=== PATIENT | male | born 1945 | race Caucasian/White ===

== ENCOUNTER 2016-12-22 07:44 | Day surgery (SDC) | payer BC, MEDICARE ==
[2016-12-22] MEDS ORDERED: Sodium Chloride 0.9% 5 ML Syringe FLUSH PRN (08:00)
[2016-12-22] MEDS ORDERED: Sodium Chloride 0.9% 1,000 ML IV SCH (08:00)
[2016-12-22] MEDS ORDERED: EPINEPHrine 1:10,000 1 MG/10 ML Syringe ONE ×2 (08:05→09:38)
[2016-12-22] MEDS ORDERED: fentaNYL 100 MCG/2 ML SDV ONE (08:07)
[2016-12-22] MEDS ORDERED: Propofol 200 MG/20 ML SDV ONE (08:07)
[2016-12-22] MEDS ORDERED: Midazolam 1 MG/ML 2 ML SDV ONE (08:07)
[2016-12-22] MEDS ORDERED: Lidocaine 2% 5 ML SDV ONE (08:08)
[2016-12-22 08:53] LABS: CHLORIDE,CL 101 mmol/L (98-115); SODIUM,NA 140 mmol/L (136-145)
[2016-12-22] MEDS ORDERED: Midazolam 1 MG/ML 2 ML SDV IV ONE (09:20)
[2016-12-22] MEDS ORDERED: Lidocaine 2% 5 ML SDV IV ONE (09:20)
[2016-12-22] MEDS ORDERED: fentaNYL 100 MCG/2 ML SDV IV ONE (09:20)
[2016-12-22] MEDS ORDERED: Propofol 200 MG/20 ML SDV IV ONE (09:20)
--- NOTE | 2016-12-22 09:56 | PCM.OPNOTE ---
- General Post-Op/Procedure Note Date of Surgery/Procedure: 12/22/16 Operative Procedure(s): Upper and lower GI endoscopy with biopsies. Anesthesia Technique: Moderate sedation Primary Surgeon: Karolyn Kiran Complications: None Condition: Good Free Text/Narrative:: INFORMED CONSENT: Patient is here today for elective upper GI endoscopy. All aspects of this procedure have been discussed with the patient. All possible complications also, including possibility of perforation, infection, pain, bleeding, numbness of the throat, swallowing difficulty and unknown complications. In the event of perforation the patient may need surgical exploration to repair the defect. The patient understands fully well. Patient did not have any further questions for me at the end of my interview. The patient wishes for me to proceed. INSTRUMENT USED: Video gastroscope ANESTHESIA: [MAC] ASA CLASSIFICATION: [2] PROCEDURE PERFORMED: [upper gastrointestinal endoscopy and biopsies] PHARYNX: Normal. ESOPHAGUS: Normal. Proximal: Normal. Middle: Changes of reflux esophagitis and noted up to the middle third of the esophagus.. Lower: Moderate to severe evidence of GERD is observed. Question Tellez's esophagitis. Multiple biopsies were taken.. GE Junction: Changes suggestive of GERD are noted. Hiatal hernia 5 cm.. STOMACH: Normal. Cardia: Normal. Fundus: Normal. Lesser Curvature: Normal. Greater Curvature: Normal. Antrum: Normal. Pylorus: Normal. DUODENUM: Normal. First Part: Normal. Second Part: Normal. Third Part: Normal. RETROFLEXION: Normal. BIOPSY: None. TOLERANCE: Excellent. COMPLICATIONS: None. INFORMED CONSENT: Patient is here today for elective colonoscopy. All aspects of this procedure have been discussed with the patient. All possible complications also, including possibility of perforation, infection, pain, bleeding and unknown complications. In the event of perforation patient may need to have abdominal exploration, colon resection, colostomy and even was discussed. Anesthetic complications were handled by anesthesia department. The patient understands fully well. Patient did not have any further questions for me at the end of my interview. The patient wishes for me to proceed. PREOPERATIVE DIAGNOSIS/INDICATIONS: [low abdomen pain and alteration of bowel habits.] POSTOPERATIVE DIAGNOSIS: [multiple diverticulosis of the sigmoid colon otherwise negative colonoscopy.] INSTRUMENT USED: [employer] videocolonoscope. ASA CLASSIFICATION: [2] ANESTHESIA: Continuous EKG, oximetry and intermittent blood pressure and respiratory monitoring were performed throughout the procedure. IV Versed and Fentanyl were administered. PROCEDURE PERFORMED: Colonoscopy POSITIONS OF PATIENT: Left lateral. RECTUM: Normal. SIGMOID COLON: Multiple sigmoid colon diverticulosis.. DESCENDING COLON: Normal. SPLENIC FLEXURE: Normal. TRANSVERSE COLON: Normal. HEPATIC FLEXURE: Normal. ASCENDING COLON: Normal. CECUM: Normal. ILEOCECAL VALVE: Normal. BIOPSY: None. TOLERANCE: Excellent. COMPLICATIONS: None.
[2016-12-22 14:44] VITALS: BP 128/81
== END 2016-12-22 11:40 | disposition home or self-care (01) ==
LOC: KA.SDS 07:44
PROVIDERS: ATTEND Family Medicine
DX: K20.9 Esophagitis, unspecified (principal); K57.30 Diverticulosis of large intestine without perforation or abscess without bleeding; K44.9 Diaphragmatic hernia without obstruction or gangrene; K21.9 Gastro-esophageal reflux disease without esophagitis; E11.9 Type 2 diabetes mellitus without complications; I10 Essential (primary) hypertension; E03.9 Hypothyroidism, unspecified; I45.2 Bifascicular block; E78.00 Pure hypercholesterolemia, unspecified; Z90.49 Acquired absence of other specified parts of digestive tract; Z79.899 Other long term (current) drug therapy; Z79.82 Long term (current) use of aspirin; Z23 Encounter for immunization
CPT/HCPCS: 43235; 45378; 80048; 82962; 85025; 93005; J0171; J2250; J2704; J3010

== ENCOUNTER 2017-02-11 07:08 | Day surgery (SDC) | payer BC, MEDICARE ==
[~2017-02-11 07:08] MED LIST: EPINEPHrine 1:10,000 1 MG/10 ML Syringe ONE; Sodium Chloride 0.9% 1,000 ML IV SCH; Sodium Chloride 0.9% 5 ML Syringe FLUSH PRN
[2017-02-11] MEDS ORDERED: Midazolam 1 MG/ML 2 ML SDV ONE (07:11)
[2017-02-11] MEDS ORDERED: Propofol 200 MG/20 ML SDV ONE (07:11)
[2017-02-11] MEDS ORDERED: Lidocaine 2% 5 ML SDV ONE (07:15)
[2017-02-11] MEDS ORDERED: Midazolam 1 MG/ML 2 ML SDV IV ONE (08:13)
[2017-02-11] MEDS ORDERED: Propofol 200 MG/20 ML SDV IV ONE (08:13)
--- NOTE | 2017-02-11 08:40 | PCM.OPNOTE ---
- General Post-Op/Procedure Note Date of Surgery/Procedure: 02/11/17 Operative Procedure(s): Upper GI Endoscopy. Pre Op Diagnosis: Severe reflux diagnosed in December. Patient has been treated with PPIs. Followup endoscopy is being proposed today. Anesthesia Technique: MAC Primary Surgeon: Karolyn Kiran Complications: None Condition: Good Free Text/Narrative:: INFORMED CONSENT: Patient is here today for elective upper GI endoscopy. All aspects of this procedure have been discussed with the patient. All possible complications also, including possibility of perforation, infection, pain, bleeding, numbness of the throat, swallowing difficulty and unknown complications. In the event of perforation the patient may need surgical exploration to repair the defect. The patient understands fully well. Patient did not have any further questions for me at the end of my interview. The patient wishes for me to proceed. INSTRUMENT USED: Video gastroscope ANESTHESIA: [MAC] ASA CLASSIFICATION: [2] PROCEDURE PERFORMED: [upper gastrointestinal endoscopy] PHARYNX: Normal. ESOPHAGUS: Normal. Proximal: Normal. Middle: Normal. Lower: Normal. GE Junction: A small hiatal hernia without inflammation was noted. STOMACH: Normal. Cardia: Normal. Fundus: Normal. Lesser Curvature: Normal. Greater Curvature: Normal. Antrum: Normal. Pylorus: Normal. DUODENUM: Normal. First Part: Normal. Second Part: Normal. Third Part: Normal. RETROFLEXION: Normal. BIOPSY: None. TOLERANCE: Excellent. COMPLICATIONS: None. small hiatal hernia without inflammation. Previously noted inflammation has completely cleared.
[2017-02-11 09:20] VITALS: BP 120/68
== END 2017-02-11 09:55 | disposition home or self-care (01) ==
LOC: KA.SDS 07:08
PROVIDERS: ATTEND Family Medicine
DX: K44.9 Diaphragmatic hernia without obstruction or gangrene (principal); I10 Essential (primary) hypertension; E11.9 Type 2 diabetes mellitus without complications; E03.9 Hypothyroidism, unspecified; E78.00 Pure hypercholesterolemia, unspecified; Z98.890 Other specified postprocedural states; Z88.8 Allergy status to other drugs, medicaments and biological substances; Z79.899 Other long term (current) drug therapy
CPT/HCPCS: 43235; 82962; J2250; J2704; J7030

== ENCOUNTER 2019-01-22 19:58 | Emergency (ER) | payer BC, MEDICARE ==
[2019-01-22] MEDS ORDERED: Sodium Chloride 0.9% 1,000 ML ONE (20:22)
[2019-01-22] MEDS ORDERED: Sodium Chloride 0.9% 10 ML Syringe FLUSH PRN (20:36)
[2019-01-22] MEDS ORDERED: Sodium Chloride 0.9% 1,000 ML IV ONE (20:36)
--- NOTE | 2019-01-22 20:40 | EDM.PDOC ---
ED HPI GENERAL MEDICAL PROBLEM - General Chief Complaint: General Stated Complaint: Weakness Time Seen by Provider: 01/22/19 20:34 Source of Information: Reports: Patient History Limitations: Reports: No Limitations - History of Present Illness INITIAL COMMENTS - FREE TEXT/NARRATIVE: Patient is a 73-year-old gentleman who presents to the emergency department this evening with a complaint of fatigue and weakness. Patient states that this is along standing complaint, however seems to be getting worse lately. Patient also says he has chronic diarrhea and some stool incontinence. Patient had a radical prostatectomy 10 years ago. Patient also has a history of diverticulosis. Patient denies spending any long periods of time in the recent hot weather. Patient denies chest pain, shortness of breath, nausea, vomiting, abdominal pain, testicular pain, dysuria, change in medication, upper respiratory symptoms, or out of country travel. Onset: Gradual Duration: Getting Worse Location: Reports: Generalized Severity: Mild Improves with: Reports: None Worsens with: Reports: Other (Activity) Associated Symptoms: Reports: Other (Chronic diarrhea). Denies: Chest Pain, Fever/Chills, Nausea/Vomiting - Related Data Allergies Allergy/AdvReac Type Severity Reaction Status Date / Time aspirin Allergy Other Verified 01/22/19 20:03 Home Meds: Home Meds Levothyroxine [Synthroid] 50 mcg PO ACBREAKFAST 12/18/16 [History] Lisinopril/Hydrochlorothiazide [Lisinopril-Hctz 10-12.5 mg Tab] 1 each PO DAILY 12/18/16 [History] Omeprazole 20 mg PO DAILY 12/18/16 [History] atorvaSTATin [Lipitor] 40 mg PO BEDTIME 12/18/16 [History] sitaGLIPtin Phos/Metformin HCl [Janumet 50-1,000 MG] 1 each PO BID 12/18/16 [ History] Allopurinol [Zyloprim] 200 mg PO DAILY 02/10/17 [History] Past Medical History HEENT History: Reports: Cataract Cardiovascular History: Reports: High Cholesterol, Hypertension Respiratory History: Reports: None Gastrointestinal History: Reports: Diverticulosis, Hiatal Hernia Genitourinary History: Reports: Prostate Disorder Musculoskeletal History: Reports: Gout Neurological History: Reports: None Psychiatric History: Reports: None Endocrine/Metabolic History: Reports: Diabetes, Type II Hematologic History: Reports: Blood Transfusion(s) Immunologic History: Reports: None Oncologic (Cancer) History: Reports: Prostate, Squamous Cell Carcinoma Dermatologic History: Reports: None - Past Surgical History HEENT Surgical History: Reports: Cataract Surgery GI Surgical History: Reports: Appendectomy, Colonoscopy, EGD, Hernia, Abdominal Social & Family History - Family History Family Medical History: Noncontributory - Caffeine Use Caffeine Use: Reports: Coffee, Soda ED ROS GENERAL - Review of Systems Review Of Systems: ROS reveals no pertinent complaints other than HPI. Constitutional: Reports: No Symptoms HEENT: Reports: No Symptoms Respiratory: Reports: No Symptoms Cardiovascular: Reports: No Symptoms Endocrine: Reports: No Symptoms GI/Abdominal: Reports: Diarrhea, Stool Incontinence, Other (No abdominal pain or Sanders sign on palpation.). Denies: Abdominal Pain, Black Stool, Bloody Stool, Mucous in Stool : Reports: No Symptoms Musculoskeletal: Reports: No Symptoms Skin: Reports: No Symptoms Neurological: Reports: No Symptoms Psychiatric: Reports: No Symptoms Hematologic/Lymphatic: Reports: No Symptoms Immunologic: Reports: No Symptoms ED EXAM, GENERAL - Physical Exam Exam: See Below Exam Limited By: No Limitations General Appearance: Alert, WD/WN, No Apparent Distress Eye Exam: Bilateral Eye: Normal Inspection Nose: Normal Inspection, Normal Mucosa, No Blood Throat/Mouth: Normal Inspection, Normal Oropharynx, No Airway Compromise Head: Atraumatic, Normocephalic Neck: Normal Inspection Respiratory/Chest: No Respiratory Distress, Lungs Clear, Normal Breath Sounds, No Accessory Muscle Use, Chest Non-Tender Cardiovascular: Regular Rate, Rhythm, No Murmur GI/Abdominal: Normal Bowel Sounds, Soft, Non-Tender, No Organomegaly, No Distention, No Abnormal Bruit, No Mass Back Exam: Normal Inspection. No: CVA Tenderness (L), CVA Tenderness (R) Extremities: Normal Inspection, No Pedal Edema Neurological: Alert, Oriented, Normal Cognition Psychiatric: Normal Affect, Normal Mood Skin Exam: Warm, Dry, Intact, Normal Color, No Rash Lymphatic: No Adenopathy EKG INTERPRETATION EKG Date: 01/22/19 Time: 20:35 Rhythm: Other (Sinus rhythm with occasional PVCs) Rate (Beats/Min): 88 [place]: Normal P-Wave: Present QRS: RBBB ST-T: Normal QT: Normal Comparison: No Change (From EKG on 12/22/2016) Course - Vital Signs Last Recorded V/S: Last Vital Signs Temp 98.5 F 01/22/19 20:00 Pulse 83 01/22/19 21:30 Resp 22 H 01/22/19 21:30 BP 125/63 01/22/19 21:30 Pulse Ox 94 L 01/22/19 21:00 - Orders/Labs/Meds Orders: Active Orders 24 hr Category Date Time Status EKG Documentation Completion [RC] ASDIRECTED Care 01/22/19 20:36 Ordered Peripheral IV Care [RC] . DIRECTED Care 01/22/19 20:36 Ordered Abdomen Pelvis w Cont [CT] Stat Exams 01/22/19 21:23 Ordered AMYLASE [CHEM] Stat Lab 01/22/19 22:41 Ordered LIPASE [CHEM] Stat Lab 01/22/19 22:41 Ordered Sodium Chloride 0.9% [Saline Flush] Med 01/22/19 20:36 Ordered 10 ml FLUSH Q8HR PRN Peripheral IV Insertion Adult [OM.PC] Routine Oth 01/22/19 20:36 Ordered EKG 12 Lead [EK] Routine Ther 01/22/19 20:36 Ordered Medication Orders Sodium Chloride (Saline Flush) 10 ml FLUSH Q8HR PRN PRN Reason: keep vein open Labs: Laboratory Tests 01/22/19 01/22/19 01/22/19 Range/Units 20:30 20:30 20:30 WBC 18.11 H (5.00-10.00) 10^3/uL RBC 4.16 L (4.50-6.00) 10^6/uL Hgb 13.4 (13.0-17.0) g/dL Hct 37.9 L (40.0-52.0) % MCV 91.1 (82.0-92.0) fL MCH 32.2 H (27.0-31.0) pg MCHC 35.4 (32.0-36.0) g/dL RDW 13.3 (11.5-14.5) % Plt Count 232 (150-400) 10^3/uL MPV 11.3 H (7.4-10.4) fL Immature Gran % (Auto) 0.4 (0.0-5.0) % Neut % (Auto) 72.8 H (50.0-70.0) % Lymph % (Auto) 14.8 L (20.0-40.0) % [place] % (Auto) 9.5 H (2.0-8.0) % Eos % (Auto) 2.3 (1.0-3.0) % Baso % (Auto) 0.2 (0.0-1.0) % Immature Gran # (Auto) 0.08 (0.00-0.50) 10^3/uL Neut # (Auto) 13.18 H (2.50-7.00) 10^3/uL Lymph # (Auto) 2.68 (1.00-4.00) 10^3/uL [place] # (Auto) 1.72 H (0.10-0.80) 10^3/uL Eos # (Auto) 0.42 H (0.10-0.30) 10^3/uL Baso # (Auto) 0.03 (0.00-0.10) 10^3/uL Sodium 140 (136-145) mmol/L Potassium 3.7 (3.3-5.3) mmol/L Chloride 101 (98-115) mmol/L Carbon Dioxide 26.1 (21.0-32.0) mmol/L Anion Gap 16.6 H (5-15) mmol/L BUN 18 (6-25) mg/dL Creatinine 1.08 (0.51-1.17) mg/dL Est Cr Clr Drug Dosing 52.20 mL/min Estimated GFR (MDRD) > 60 mL/min Glucose 160 H (75 - 99) mg/dL Lactic Acid (0.4-2.0) mmol/L Calcium 6.5 L D (8.7-10.3) mg/dL Total Bilirubin 0.7 (0.2-1.0) mg/dL AST 26 (15-37) U/L ALT 28 (12-78) U/L Alkaline Phosphatase 107 (46-116) IU/L Creatine Kinase 686 H* (26-276) U/L Total Protein 7.2 (6.4-8.2) g/dL Albumin 3.11 (3.00-4.80) g/dL Free T4 0.79 (0.59-1.17) ng/dL TSH, Ultra Sensitive (0.340-4.820) uIU/mL Specimen Type Urine Color (YELLOW) Urine Appearance (CLEAR) Urine pH (5.0-9.0) Ur Specific [place] (1.005-1.030) Urine Protein (NEGATIVE) mg/dL Urine Glucose (UA) (NEGATIVE) mg/dL Urine Ketones (NEGATIVE) mg/dL Urine Occult Blood (NEGATIVE) Urine Nitrite (NEGATIVE) Urine Bilirubin (NEGATIVE) Urine Urobilinogen (0.2-1.0) E.U./dL Ur Leukocyte Esterase (NEGATIVE) Urine RBC (0-5) /HPF Urine WBC (0-5) /HPF Ur Epithelial Cells /LPF Urine Bacteria (NONE TO FEW) /HPF 01/22/19 01/22/19 01/22/19 Range/Units 20:30 20:30 21:32 WBC (5.00-10.00) 10^3/uL RBC (4.50-6.00) 10^6/uL Hgb (13.0-17.0) g/dL Hct (40.0-52.0) % MCV (82.0-92.0) fL MCH (27.0-31.0) pg MCHC (32.0-36.0) g/dL RDW (11.5-14.5) % Plt Count (150-400) 10^3/uL MPV (7.4-10.4) fL Immature Gran % (Auto) (0.0-5.0) % Neut % (Auto) (50.0-70.0) % Lymph % (Auto) (20.0-40.0) % [place] % (Auto) (2.0-8.0) % Eos % (Auto) (1.0-3.0) % Baso % (Auto) (0.0-1.0) % Immature Gran # (Auto) (0.00-0.50) 10^3/uL Neut # (Auto) (2.50-7.00) 10^3/uL Lymph # (Auto) (1.00-4.00) 10^3/uL [place] # (Auto) (0.10-0.80) 10^3/uL Eos # (Auto) (0.10-0.30) 10^3/uL Baso # (Auto) (0.00-0.10) 10^3/uL Sodium (136-145) mmol/L Potassium (3.3-5.3) mmol/L Chloride (98-115) mmol/L Carbon Dioxide (21.0-32.0) mmol/L Anion Gap (5-15) mmol/L BUN (6-25) mg/dL Creatinine (0.51-1.17) mg/dL Est Cr Clr Drug Dosing mL/min Estimated GFR (MDRD) mL/min Glucose (75 - 99) mg/dL Lactic Acid 1.2 (0.4-2.0) mmol/L Calcium (8.7-10.3) mg/dL Total Bilirubin (0.2-1.0) mg/dL AST (15-37) U/L ALT (12-78) U/L Alkaline Phosphatase (46-116) IU/L Creatine Kinase (26-276) U/L Total Protein (6.4-8.2) g/dL Albumin (3.00-4.80) g/dL Free T4 (0.59-1.17) ng/dL TSH, Ultra Sensitive 2.960 (0.340-4.820) uIU/mL Specimen Type Urinvoid Urine Color Yellow (YELLOW) Urine Appearance Clear (CLEAR) Urine pH 5.5 (5.0-9.0) Ur Specific [place] 1.010 (1.005-1.030) Urine Protein Negative (NEGATIVE) mg/dL Urine Glucose (UA) Negative (NEGATIVE) mg/dL Urine Ketones Negative (NEGATIVE) mg/dL Urine Occult Blood Trace-intact H (NEGATIVE) Urine Nitrite Negative (NEGATIVE) Urine Bilirubin Negative (NEGATIVE) Urine Urobilinogen 0.2 (0.2-1.0) E.U./dL Ur Leukocyte Esterase Negative (NEGATIVE) Urine RBC 0-5 (0-5) /HPF Urine WBC 0-5 (0-5) /HPF Ur Epithelial Cells Rare /LPF Urine Bacteria Rare (NONE TO FEW) /HPF Meds: Medications Generic Name Dose Route Start Last Admin Trade Name Freq PRN Reason Stop Dose Admin Sodium Chloride 10 ml 01/22/19 20:36 Saline Flush FLUSH Q8HR PRN keep vein open Discontinued Medications Generic Name Dose Route Start Last Admin Trade Name Freq PRN Reason Stop Dose Admin Sodium Chloride Confirm 01/22/19 20:22 01/22/19 22:45 Normal Saline Administered 01/22/19 20:23 Not Given Dose 1,000 mls @ as directed .ROUTE .STK-MED ONE Sodium Chloride 1,000 mls @ 999 mls/hr 01/22/19 20:36 01/22/19 21:05 Normal Saline IV 01/22/19 21:36 999 mls/hr .BOLUS ONE Administration - Radiology Interpretation Free Text/Narrative:: CT abdomen and pelvis with contrast shows inflammatory changes suggestive of pancreatitis, anterior abdominal wall fat hernia without obstruction or small bowel, moderate colonic diverticulosis without evidence of diverticulitis. No bowel obstruction - Re-Assessments/Exams Free Text/Narrative Re-Assessment/Exam: 01/22/19 22:56 Patient afebrile, vital signs stable, denies abdominal pain or nausea. Discussed case with Dr. Kathia root, patient will follow-up at the [facility] on Thursday. Departure - Departure Time of Disposition: 22:56 Disposition: Home, Self-Care 01 Condition: Good Clinical Impression: Pancreatitis Qualifiers: Chronicity: acute Pancreatitis type: unspecified pancreatitis type Acute pancreatitis complication: no infection or necrosis Qualified Code(s): K85.90 - Acute pancreatitis without necrosis or infection, unspecified Diarrhea Qualifiers: Diarrhea type: unspecified type Qualified Code(s): R19.7 - Diarrhea, unspecified Leukocytosis Qualifiers: Leukocytosis type: unspecified Qualified Code(s): D72.829 - Elevated white blood cell count, unspecified - Discharge Information Instructions: Food Choices to Help Relieve Diarrhea, Adult, Acute Pancreatitis , [id number], Diarrhea, Adult, [id number] Referrals: Melanie Berrios MD [Physician] - Forms: ED Department Discharge Additional Instructions: Follow-up at [facility] on Thursday. Call them at 8 a.m. to schedule appointment time. Return to the emergency department sooner if symptoms continue or worsen. - My Orders Last 24 Hours: My Active Orders 01/22/19 20:36 EKG Documentation Completion [RC] ASDIRECTED Peripheral IV Care [RC] . DIRECTED Sodium Chloride 0.9% [Saline Flush] 10 ml FLUSH Q8HR PRN Peripheral IV Insertion Adult [OM.PC] Routine EKG 12 Lead [EK] Routine 01/22/19 21:23 Abdomen Pelvis w Cont [CT] Stat 01/22/19 22:41 AMYLASE [CHEM] Stat LIPASE [CHEM] Stat - Assessment/Plan Last 24 Hours: My Active Orders 01/22/19 20:36 EKG Documentation Completion [RC] ASDIRECTED Peripheral IV Care [RC] . DIRECTED Sodium Chloride 0.9% [Saline Flush] 10 ml FLUSH Q8HR PRN Peripheral IV Insertion Adult [OM.PC] Routine EKG 12 Lead [EK] Routine 01/22/19 21:23 Abdomen Pelvis w Cont [CT] Stat 01/22/19 22:41 AMYLASE [CHEM] Stat LIPASE [CHEM] Stat Assessment:: Pancreatitis Plan: Follow-up at [facility] on Thursday
[2019-01-22 21:05] LABS: ANION GAP 16.6 mmol/L (5-15); CHLORIDE,CL 101 mmol/L (98-115); SODIUM,NA 140 mmol/L (136-145)
[2019-01-22] MEDS ORDERED: Iopamidol 612 MG/ML 100 ML Bottle IVPUSH ONE (21:50)
[2019-01-23 00:13] VITALS: BP 132/71
--- NOTE | 2019-01-23 08:36 | CT ---
[id number] CT/CT Abdomen Pelvis W IV EXAM: CT Abdomen Pelvis W IV CLINICAL DATA: ABDOMINAL PAIN. HISTORY OF DIVERTICULITIS COMPARISON: CORRELATION IS MADE WITH THE EXAM OF NOVEMBER 26, 2013 FINDINGS: There is colonic diverticulosis with no diverticulitis. The pelvis shows no mass or adenopathy. There is no abscess. There is no evidence of appendicitis. The gallbladder is slightly distended. A small right-sided hepatic cyst is stable. The adrenals, aorta, kidneys, liver, spleen, pancreas otherwise are overall unremarkable. There is question of minimal pancreatitis. A small right lower quadrant anterior abdominal wall defect is seen containing mesenteric fat and minimally bowel. There is no bowel distention. IMPRESSION: QUESTION OF MINIMAL PANCREATITIS. NO DIVERTICULITIS. Karri Richmond MD 01/23/19 0834 Thank you for allowing us to participate in the care of your patient.
[2019-01-24] MEDS ORDERED: Sodium Chloride 0.9% 50 ML IV SCH (11:00)
== END 2019-01-22 23:03 | disposition home or self-care (01) ==
LOC: KA.ED 19:58
DX: K85.90 Acute pancreatitis without necrosis or infection, unspecified (principal); R19.7 Diarrhea, unspecified; D72.829 Elevated white blood cell count, unspecified; E78.00 Pure hypercholesterolemia, unspecified; I10 Essential (primary) hypertension; E11.9 Type 2 diabetes mellitus without complications; Z88.8 Allergy status to other drugs, medicaments and biological substances; Z79.899 Other long term (current) drug therapy
CPT/HCPCS: 36415; 74177; 80053; 81001; 82150; 82550; 83605; 83690; 84439; 84443; 85025; 93005; 96360; 96361; 99285-25; J7030; J7050

== ENCOUNTER 2020-02-17 07:57 | Emergency (ER) | payer BC, MEDICARE ==
[2020-02-17] MEDS ORDERED: Sodium Chloride 0.9% 10 ML Syringe FLUSH PRN (09:05)
--- NOTE | 2020-02-17 09:05 | EDM.PDOC ---
ED HPI GENERAL MEDICAL PROBLEM - General Chief Complaint: Cardiovascular Problem Stated Complaint: BLEEDING, S/P STENT PROCEDURE ON 02/16/20 Time Seen by Provider: 02/17/20 08:37 Source of Information: Reports: Patient History Limitations: Reports: No Limitations - History of Present Illness INITIAL COMMENTS - FREE TEXT/NARRATIVE: Patient is a 74-year-old gentleman who presents to the emergency department this morning via private vehicle with a complaint of bleeding from post catheterization to right femoral artery. Patient states that he was at [facility] yesterday, underwent cardiac catheterization performed through the right femoral artery at 3 p.m. Patient states he was released from hospital at 8 p.m. last night and proceeded home to local area. noticed slight blood oozing from catheter site throughout night. Required changing dressing several times. Family became concerned, so patient presented to the emergency department. Patient denies any distal pain, numbness, or coldness to right lower extremity. Patient denies chest pain, shortness of breath, fever, abdominal pain, nausea or vomiting. Onset: Gradual Duration: Hour(s): Location: Reports: Other (Right inguinal region) Quality: Reports: Pressure Severity: Mild Improves with: Reports: None Worsens with: Reports: None Context: Reports: Other (Status post cardiac catheterization through femoral artery) Associated Symptoms: Reports: No Other Symptoms. Denies: Chest Pain, Diaphoresis, Fever/Chills, Nausea/Vomiting, Shortness of Breath - Related Data Allergies Allergy/AdvReac Type Severity Reaction Status Date / Time aspirin Allergy Other Verified 01/22/19 20:03 Home Meds: Home Meds Levothyroxine [Synthroid] 50 mcg PO ACBREAKFAST 12/18/16 [History] Omeprazole 20 mg PO DAILY 12/18/16 [History] atorvaSTATin [Lipitor] 40 mg PO BEDTIME 12/18/16 [History] Aspirin [Halfprin] 81 mg PO DAILY 02/17/20 [History] Fluticasone Propionate [Flonase] 1 spray ISHAN DAILY 02/17/20 [History] Glimepiride [Amaryl] 8 mg PO DAILY 02/17/20 [History] Metoprolol Succinate [Toprol Xl] 25 mg PO DAILY 02/17/20 [History] Nitroglycerin [Nitrostat] 0.4 mg SL ASDIRECTED PRN 02/17/20 [History] Spironolactone [Aldactone] 25 mg PO DAILY 02/17/20 [History] Ticagrelor [Brilinta] 90 mg PO BID 02/17/20 [History] Past Medical History HEENT History: Reports: Cataract Cardiovascular History: Reports: High Cholesterol, Hypertension Respiratory History: Reports: None Gastrointestinal History: Reports: Diverticulosis, Hiatal Hernia Genitourinary History: Reports: Prostate Disorder Musculoskeletal History: Reports: Gout Neurological History: Reports: None Psychiatric History: Reports: None Endocrine/Metabolic History: Reports: Diabetes, Type II Hematologic History: Reports: Blood Transfusion(s) Immunologic History: Reports: None Oncologic (Cancer) History: Reports: Prostate, Squamous Cell Carcinoma Dermatologic History: Reports: None - Past Surgical History HEENT Surgical History: Reports: Cataract Surgery GI Surgical History: Reports: Appendectomy, Colonoscopy, EGD, Hernia, Abdominal Social & Family History - Family History Family Medical History: Noncontributory - Tobacco Use Smoking Status *Q: Never Smoker Second Hand Smoke Exposure: No - Caffeine Use Caffeine Use: Reports: Coffee, Energy Drinks, Soda - Recreational Drug Use Recreational Drug Use: No ED ROS GENERAL - Review of Systems Review Of Systems: Comprehensive ROS is negative, except as noted in HPI. Constitutional: Reports: No Symptoms HEENT: Reports: No Symptoms Respiratory: Reports: No Symptoms Cardiovascular: Reports: No Symptoms Endocrine: Reports: No Symptoms GI/Abdominal: Reports: No Symptoms : Reports: No Symptoms Musculoskeletal: Reports: No Symptoms Skin: Reports: Other (Right inguinal area with blood oozing puncture wound) Neurological: Reports: No Symptoms Psychiatric: Reports: No Symptoms Hematologic/Lymphatic: Reports: No Symptoms Immunologic: Reports: No Symptoms ED EXAM, GENERAL - Physical Exam Exam: See Below Exam Limited By: No Limitations General Appearance: Alert, WD/WN, No Apparent Distress Nose: Normal Inspection, No Blood Throat/Mouth: Normal Inspection, Normal Oropharynx, No Airway Compromise Head: Atraumatic, Normocephalic Neck: Normal Inspection Respiratory/Chest: No Respiratory Distress, Lungs Clear, Normal Breath Sounds, No Accessory Muscle Use, Chest Non-Tender Cardiovascular: Regular Rate, Rhythm, No Murmur Peripheral Pulses: 1+: Popliteal (L), Popliteal (R), Posterior Tibial (L), Posterior Tibial (R), Dorsalis Pedis (L), Dorsalis Pedis (R), 2+: Femoral (L), Femoral (R) GI/Abdominal: Normal Bowel Sounds, Soft, Non-Tender, No Mass (Male) Exam: No Hernia. No: Scrotum Tenderness (L), Scrotum Tenderness (R), Testicular Tenderness (L), Testicular Tenderness (R) Back Exam: Normal Inspection. No: CVA Tenderness (L), CVA Tenderness (R) Extremities: Other (Right inguinal region without palpable mass or hematoma. Isolated catheterization puncture site with minimal bright red blood oozing, nonpulsatile) Neurological: Alert, Oriented, Normal Cognition Psychiatric: Normal Affect, Normal Mood Skin Exam: Warm, Dry, Normal Color, No Rash, Other (As above) Lymphatic: No Adenopathy EKG INTERPRETATION EKG Date: 02/17/20 Time: 11:25 Rhythm: Other (Sinus rhythm with PACs) Rate (Beats/Min): 91 [place]: LAD-Left [place] Deviation QRS: Other (Nonspecific intraventricular block) QT: Prolonged Comparison: No Change Course - Vital Signs Last Recorded V/S: Last Vital Signs Temp 97.6 F 02/17/20 08:10 Pulse 90 02/17/20 08:10 Resp 24 H 02/17/20 08:10 BP 145/68 H 02/17/20 08:10 Pulse Ox 93 L 02/17/20 08:10 - Orders/Labs/Meds Orders: Active Orders 24 hr Category Date Time Status EKG Documentation Completion [RC] ASDIRECTED Care 02/17/20 10:51 Ordered Peripheral IV Care [RC] . DIRECTED Care 02/17/20 09:05 Ordered Sodium Chloride 0.9% [Normal Saline] 50 ml Med 02/17/20 09:30 Active IV ASDIRECTED Sodium Chloride 0.9% [Saline Flush] Med 02/17/20 09:05 Ordered 10 ml FLUSH Q8HR PRN Peripheral IV Insertion Adult [OM.PC] Routine Oth 02/17/20 09:05 Ordered EKG 12 Lead [EK] Stat Ther 02/17/20 10:51 Ordered Medication Orders Sodium Chloride (Normal Saline) 50 mls @ 200 mls/min IV ASDIRECTED LEVI Last Admin: 02/17/20 10:29 Dose: 200 mls/min Documented by: ENDECAY Sodium Chloride (Saline Flush) 10 ml FLUSH Q8HR PRN PRN Reason: keep vein open Labs: Laboratory Tests 02/17/20 02/17/20 02/17/20 Range/Units 09:08 09:08 09:08 WBC 13.35 H (5.00-10.00) 10^3/uL RBC 4.43 L (4.50-6.00) 10^6/uL Hgb 13.1 (13.0-17.0) g/dL Hct 40.8 (40.0-52.0) % MCV 92.1 H (82.0-92.0) fL MCH 29.6 (27.0-31.0) pg MCHC 32.1 (32.0-36.0) g/dL RDW 14.6 H (11.5-14.5) % Plt Count 181 (150-400) 10^3/uL MPV 11.2 H (7.4-10.4) fL Immature Gran % (Auto) 0.3 (0.0-5.0) % Neut % (Auto) 76.4 H (50.0-70.0) % Lymph % (Auto) 11.4 L (20.0-40.0) % [place] % (Auto) 11.0 H (2.0-8.0) % Eos % (Auto) 0.8 L (1.0-3.0) % Baso % (Auto) 0.1 (0.0-1.0) % Neut # (Auto) 10.19 H (2.50-7.00) 10^3/uL Lymph # (Auto) 1.52 (1.00-4.00) 10^3/uL [place] # (Auto) 1.47 H (0.10-0.80) 10^3/uL Eos # (Auto) 0.11 (0.10-0.30) 10^3/uL Baso # (Auto) 0.02 (0.00-0.10) 10^3/uL Immature Gran # (Auto) 0.04 (0.00-0.50) 10^3/uL PT 9.9 (9.2-11.2) SEC INR 1.0 (0.9-1.1) APTT 30.5 (22.8-31.4) SEC Sodium 141 (136-145) mmol/L Potassium 4.5 (3.3-5.3) mmol/L Chloride 106 (98-115) mmol/L Carbon Dioxide 26.4 (21.0-32.0) mmol/L Anion Gap 13.1 (5-15) mmol/L BUN 24 (6-25) mg/dL Creatinine 1.10 (0.51-1.17) mg/dL Est Cr Clr Drug Dosing 50.47 mL/min Estimated GFR (MDRD) > 60 mL/min Glucose 181 H (75 - 99) mg/dL Calcium 8.6 L D (8.7-10.3) mg/dL Total Bilirubin 0.9 (0.2-1.0) mg/dL AST 35 (15-37) U/L ALT 40 (12-78) U/L Alkaline Phosphatase 110 (46-116) IU/L Troponin I (0.00-0.070) ng/mL B-Natriuretic Peptide (0-100) pg/mL Total Protein 7.1 (6.4-8.2) g/dL Albumin 3.51 (3.00-4.80) g/dL 02/17/20 02/17/20 Range/Units 09:08 11:15 WBC (5.00-10.00) 10^3/uL RBC (4.50-6.00) 10^6/uL Hgb (13.0-17.0) g/dL Hct (40.0-52.0) % MCV (82.0-92.0) fL MCH (27.0-31.0) pg MCHC (32.0-36.0) g/dL RDW (11.5-14.5) % Plt Count (150-400) 10^3/uL MPV (7.4-10.4) fL Immature Gran % (Auto) (0.0-5.0) % Neut % (Auto) (50.0-70.0) % Lymph % (Auto) (20.0-40.0) % [place] % (Auto) (2.0-8.0) % Eos % (Auto) (1.0-3.0) % Baso % (Auto) (0.0-1.0) % Neut # (Auto) (2.50-7.00) 10^3/uL Lymph # (Auto) (1.00-4.00) 10^3/uL [place] # (Auto) (0.10-0.80) 10^3/uL Eos # (Auto) (0.10-0.30) 10^3/uL Baso # (Auto) (0.00-0.10) 10^3/uL Immature Gran # (Auto) (0.00-0.50) 10^3/uL PT (9.2-11.2) SEC INR (0.9-1.1) APTT (22.8-31.4) SEC Sodium (136-145) mmol/L Potassium (3.3-5.3) mmol/L Chloride (98-115) mmol/L Carbon Dioxide (21.0-32.0) mmol/L Anion Gap (5-15) mmol/L BUN (6-25) mg/dL Creatinine (0.51-1.17) mg/dL Est Cr Clr Drug Dosing mL/min Estimated GFR (MDRD) mL/min Glucose (75 - 99) mg/dL Calcium (8.7-10.3) mg/dL Total Bilirubin (0.2-1.0) mg/dL AST (15-37) U/L ALT (12-78) U/L Alkaline Phosphatase (46-116) IU/L Troponin I 0.29 H* (0.00-0.070) ng/mL B-Natriuretic Peptide 742 H (0-100) pg/mL Total Protein (6.4-8.2) g/dL Albumin (3.00-4.80) g/dL Meds: Medications Generic Name Dose Route Start Last Admin Trade Name Freq PRN Reason Stop Dose Admin Sodium Chloride 50 mls @ 200 mls/min 02/17/20 09:30 02/17/20 10:29 Normal Saline IV 200 mls/min ASDIRECTED LEVI Administration Sodium Chloride 10 ml 02/17/20 09:05 Saline Flush FLUSH Q8HR PRN keep vein open Discontinued Medications Generic Name Dose Route Start Last Admin Trade Name Freq PRN Reason Stop Dose Admin Furosemide 40 mg 02/17/20 12:06 Lasix IVPUSH 02/17/20 12:07 NOW ONE Iopamidol 100 ml 02/17/20 09:20 02/17/20 10:29 [id number] (76%) IV 02/17/20 09:21 75 ml ONETIME ONE Administration - Radiology Interpretation Free Text/Narrative:: CT with contrast of the pelvis with contrast shows small right femoral hematoma, but no extravasation of vascular contrast identified Chest x-ray shows cardiomegaly with mild to moderate central vascular congestion/ congestive heart failure - Re-Assessments/Exams Free Text/Narrative Re-Assessment/Exam: 02/17/20 12:04 Discussed case with , cardiology at [facility]. He recommended transfer and further evaluation. Also discussed case with Dr. Trevizo, hospitalist at [facility] who accepted patient for transfer. Free Text/Narrative Re-Assessment/Exam: 02/17/20 12:20 Patient afebrile, vital signs stable, oxygen saturation 96% on 4 L nasal cannula. Patient will be transferred to [facility] per ground ACLS Departure - Departure Time of Disposition: 12:20 Disposition: DC/Tfer to Acute Hospital 02 Reason for Transfer *Q: Primary PCI Indicated Condition: Fair Clinical Impression: Shortness of breath, Elevated troponin Congestive heart failure (CHF) Qualifiers: Heart failure type: unspecified Heart failure chronicity: acute Qualified Code(s): I50.9 - Heart failure, unspecified Referrals: Melanie Berrios MD [Primary Care Provider] - Forms: ED Department Discharge Sepsis Event Note (ED) - Evaluation Sepsis Screening Result: No Definite Risk - Focused Exam Vital Signs: Vital Signs Temp Pulse Resp BP Pulse Ox 02/17/20 08:10 97.6 F 90 24 H 145/68 H 93 L - My Orders Last 24 Hours: My Active Orders 02/17/20 09:05 Peripheral IV Care [RC] . DIRECTED Sodium Chloride 0.9% [Saline Flush] 10 ml FLUSH Q8HR PRN Peripheral IV Insertion Adult [OM.PC] Routine 02/17/20 09:30 Sodium Chloride 0.9% [Normal Saline] 50 ml IV ASDIRECTED 02/17/20 10:51 EKG Documentation Completion [RC] ASDIRECTED EKG 12 Lead [EK] Stat - Assessment/Plan Last 24 Hours: My Active Orders 02/17/20 09:05 Peripheral IV Care [RC] . DIRECTED Sodium Chloride 0.9% [Saline Flush] 10 ml FLUSH Q8HR PRN Peripheral IV Insertion Adult [OM.PC] Routine 02/17/20 09:30 Sodium Chloride 0.9% [Normal Saline] 50 ml IV ASDIRECTED 02/17/20 10:51 EKG Documentation Completion [RC] ASDIRECTED EKG 12 Lead [EK] Stat Assessment:: Congestive heart failure Plan: Transfer to [facility]
[2020-02-17 09:33] LABS: PTT,PARTIAL THROMBOPLSTIN TIME 30.5 SEC (22.8-31.4)
[2020-02-17 09:36] LABS: ANION GAP 13.1 mmol/L (5-15); CHLORIDE,CL 106 mmol/L (98-115); SODIUM,NA 141 mmol/L (136-145)
[2020-02-17] MEDS: Iopamidol 755 Mg/ML 100 ML Bottle IV ONE (10:29)
[2020-02-17] MEDS: Sodium Chloride 0.9% 50 ML IV SCH (10:29)
--- NOTE | 2020-02-17 10:54 | CT ---
[id number] CT/CT Pelvis WWO IV Exam: CT Pelvis WWO IV Clinical Data: POST ANGIOGRAPHY BLEEDING COMPARISON: CORRELATION IS MADE WITH JANUARY 22, 2019 FINDINGS: There is a small amount of subcutaneous edema and/or hematoma in the right inguinal region There is a small hematoma also identified anterior to the right femoral vessels There is no extravasation of vascular contrast identified IMPRESSION: SMALL RIGHT FEMORAL HEMATOMA Karri Richmond MD 02/17/20 1053 Thank you for allowing us to participate in the care of your patient.
--- NOTE | 2020-02-17 11:28 | CR ---
[id number] RAD/RAD Chest PA or AP 1V EXAM: FRONTAL CHEST INDICATION: SHORTNESS OF BREATH. COMPARISON: None. DISCUSSION: Cardiomegaly with mild to moderate central vascular congestion, mild pulmonary edema and possible minimal right effusion. A loop recorder overlies the left mid chest. Mild elevation right hemidiaphragm. IMPRESSION: 1. Mild to moderate congestive heart failure. Gallo Gonsales MD 02/17/20 1127 Thank you for allowing us to participate in the care of your patient.
[2020-02-17] MEDS: Furosemide 40 MG/4 ML VIAL IVPUSH ONE (12:10)
[2020-02-17 13:53] VITALS: BP 136/82; PULSE 81
== END 2020-02-17 14:30 ==
LOC: KA.ED 07:57
DX: I11.0 Hypertensive heart disease with heart failure (principal); I50.9 Heart failure, unspecified; R79.89 Other specified abnormal findings of blood chemistry; E11.9 Type 2 diabetes mellitus without complications; E78.00 Pure hypercholesterolemia, unspecified; Z88.6 Allergy status to analgesic agent; Z79.82 Long term (current) use of aspirin; Z79.899 Other long term (current) drug therapy
CPT/HCPCS: 36415; 71045; 72194; 80053; 83880; 84484; 85025; 85610; 85730; 93005; 96374; 99285-25; J1940; J7050; Q9967

== ENCOUNTER 2024-12-12 09:30 | Inpatient (IN) | payer BC ==
[2024-12-12] MEDS ORDERED: Nitroglycerin 0.4 MG Tab.SL SL PRN (22:00)
[2024-12-12] MEDS ORDERED: Atropine 0.1 MG/ML 10 ML Syringe IVPUSH PRN (22:00)
[2024-12-12] MEDS ORDERED: Sodium Chloride 0.9% 10 ML Syringe FLUSH PRN (22:00)
[2024-12-12] MEDS ORDERED: Lidocaine 2% 100 MG/5 ML Syringe IVPUSH PRN (22:00)
[2024-12-12] MEDS ORDERED: EPINEPHrine 1:10,000 1 MG/10 ML Syringe IVPUSH PRN (22:00)
[2024-12-13] MEDS ORDERED: Non-Formulary Medication 1 Each (Clobetasol [Clobetasol 0.05%] 30 GM Tube) TOP PRN (00:48)
[2024-12-13] MEDS ORDERED: Fluticasone NASAL Spray 16 GM Bottle NAS PRN (00:48)
[2024-12-13] MEDS ORDERED: Ketoconazole 15 GM TUBE TOP PRN (00:48)
[2024-12-13] MEDS: Furosemide 40 MG/4 ML VIAL IVPUSH ONE ×2 (02:18→11:08)
[2024-12-13] MEDS: Apixaban 5 MG Tab PO SCH (03:29)
[2024-12-13] MEDS ORDERED: Glucagon,Human Recombinant 1 MG Vial IM PRN (06:11)
[2024-12-13] MEDS ORDERED: Glucose Gel 15 GM in 37.5 GM Tube PO PRN (06:11)
[2024-12-13] MEDS ORDERED: 50% Dextrose in Water 50 ML Syringe IVPUSH PRN (06:11)
[2024-12-13 07:01] LABS: HEMATOCRIT 42.4 % (40.0-52.0); HEMOGLOBIN 13.5 g/dL (13.0-17.0); MEAN CORPUSCULAR HEMOGLOBIN 28.5 pg (27.0-31.0); MEAN CORPUSCULAR HGB CONC 31.8 g/dL (32.0-36.0); MEAN CORPUSCULAR VOLUME 89.6 fL (82.0-92.0); MEAN PLATELET VOLUME 10.7 fL (7.4-10.4); PLATELET COUNT,PLT 172 10^3/uL (150-400); RED BLOOD CELL COUNT 4.73 10^6/uL (4.50-6.00); RED CELL DISTRIBUTION WIDTH 16.2 % (11.5-14.5); WHITE BLOOD CELL COUNT,WBC 9.97 10^3/uL (5.00-10.00)
[2024-12-13 07:16] LABS: ALBUMIN 2.96 g/dL (3.40-5.00); ANION GAP 12.2 mmol/L (5-15); BILIRUBIN TOTAL 1.3 mg/dL (0.2-1.0); CALCIUM 7.6 mg/dL (8.7-10.3); CARBON DIOXIDE,CO2 31.4 mmol/L (21.0-32.0); CREATININE 1.14 mg/dL (0.51-1.17); EST CRCL DRUG DOSING (CG) 44.96 mL/min; MAGNESIUM 1.3 mg/dL (1.8-2.4); POTASSIUM,K 3.6 mmol/L (3.5-5.1); PROTEIN TOTAL,TP 6.5 g/dL (6.4-8.2)
[2024-12-13] MEDS: Pantoprazole 40 MG Tab.CR PO SCH (07:50)
[2024-12-13] MEDS: Levothyroxine 50 MCG Tab PO SCH (07:53)
[2024-12-13] MEDS: Insulin Lispro 100 Unit/ML 3 ML KwikPen SUBCUT SCH (07:54)
[2024-12-13] MEDS: Spironolactone 25 MG Tab PO SCH (08:33)
[2024-12-13] MEDS: Metoprolol Succinate 25 MG Tab.ER PO SCH (08:34)
[2024-12-13] MEDS: Clopidogrel 75 MG Tab PO SCH (08:37)
[2024-12-13] MEDS: Allopurinol 100 MG Tab PO SCH (08:37)
[2024-12-13] MEDS: Lisinopril 5 MG Tab PO SCH (08:38)
[2024-12-13] MEDS ORDERED: Non-Formulary Medication 1 Each (Empagliflozin [Jardiance] 25 MG Tablet) PO SCH (09:00)
[2024-12-13] MEDS: Sodium Chloride 0.9% 50 ML IV SCH (11:08)
[2024-12-13] MEDS: Magnesium Sulfate 2 GM/50 mL 2 GM in Premix Bag 1 BAG IV ONE (11:08)
[2024-12-13] MEDS: Potassium Chloride 20 MEQ Tab.ER PO ONE (11:08)
[2024-12-13 13:56] VITALS: BP 127/70; PULSE 69
[2024-12-13] MEDS ORDERED: atorvaSTATin 40 MG Tab PO SCH (21:00)
== END 2024-12-13 13:53 | disposition home or self-care (01) | DRG 194 ==
LOC: KA.NPLAB 09:30 → KA.MS 22:00
PROVIDERS: ADMIT Internal Medicine; ATTEND Internal Medicine
DX: I11.0 Hypertensive heart disease with heart failure (principal); I50.33 Acute on chronic diastolic (congestive) heart failure; I25.10 Atherosclerotic heart disease of native coronary artery without angina pectoris; I48.91 Unspecified atrial fibrillation; E78.00 Pure hypercholesterolemia, unspecified; N42.9 Disorder of prostate, unspecified; M10.9 Gout, unspecified; E11.9 Type 2 diabetes mellitus without complications; E83.42 Hypomagnesemia; E83.51 Hypocalcemia; E87.6 Hypokalemia; E03.9 Hypothyroidism, unspecified; Z79.01 Long term (current) use of anticoagulants; Z88.8 Allergy status to other drugs, medicaments and biological substances; Z85.828 Personal history of other malignant neoplasm of skin; Z98.49 Cataract extraction status, unspecified eye; Z98.890 Other specified postprocedural states; Z90.49 Acquired absence of other specified parts of digestive tract; Z79.84 Long term (current) use of oral hypoglycemic drugs; Z79.899 Other long term (current) drug therapy
CPT/HCPCS: 36415; 80053; 82947; 83735; 83880; 84484; 85027; 99223-GT; 99238-GT; A9270-GY; J1938; J3475; Q3014

== ENCOUNTER 2024-12-12 19:47 | Emergency (ER) | payer BC ==
[2024-12-12] MEDS ORDERED: Sodium Chloride 0.9% 10 ML Syringe FLUSH PRN (19:48)
[2024-12-12 20:11] LABS: BASOPHILS ABSOLUTE AUTO 0.01 10^3/uL (0.00-0.10); BASOPHILS PERCENT AUTO 0.1 % (0.0-1.0); EOSINOPHILS ABSOLUTE AUTO 0.14 10^3/uL (0.10-0.30); EOSINOPHILS PERCENT AUTO 1.2 % (1.0-3.0); HEMATOCRIT 42.5 % (40.0-52.0); HEMOGLOBIN 13.7 g/dL (13.0-17.0); IMMATURE GRAN ABSOLUTE AUTO 0.08 10^3/uL (0.00-0.04); IMMATURE GRAN PERCENT AUTO 0.7 % (0.0-0.4); LYMPHOCYTES ABSOLUTE AUTO 1.51 10^3/uL (1.00-4.00); LYMPHOCYTES PERCENT AUTO 13.1 % (20.0-40.0); MEAN CORPUSCULAR HEMOGLOBIN 29.1 pg (27.0-31.0); MEAN CORPUSCULAR HGB CONC 32.2 g/dL (32.0-36.0); MEAN CORPUSCULAR VOLUME 90.2 fL (82.0-92.0); MEAN PLATELET VOLUME 11.1 fL (7.4-10.4); MONOCYTES ABSOLUTE AUTO 1.27 10^3/uL (0.10-0.80); NEUTROPHILS ABSOLUTE AUTO 8.53 10^3/uL (2.50-7.00); NEUTROPHILS PERCENT AUTO 73.9 % (50.0-70.0); PLATELET COUNT,PLT 196 10^3/uL (150-400); RED BLOOD CELL COUNT 4.71 10^6/uL (4.50-6.00); RED CELL DISTRIBUTION WIDTH 16.4 % (11.5-14.5); WHITE BLOOD CELL COUNT,WBC 11.54 10^3/uL (5.00-10.00)
[2024-12-12 20:28] LABS: ALBUMIN 2.87 g/dL (3.40-5.00); CALCIUM 7.2 mg/dL (8.7-10.3); CREATININE 1.11 mg/dL (0.51-1.17); EST CRCL DRUG DOSING (CG) 46.17 mL/min; PROTEIN TOTAL,TP 6.6 g/dL (6.4-8.2)
[2024-12-12 20:29] LABS: MAGNESIUM 0.8 mg/dL (1.8-2.4)
[2024-12-12] MEDS: Calcium Gluconate 1 GM in Sodium Chloride 0.9% 100 ML IV ONE (21:33)
[2024-12-12] MEDS: Magnesium Sulf/Wat 2 GM/50 mL 2 GM in Premix Bag 1 BAG IV ONE (21:45)
[2024-12-12] MEDS: Calcium Gluconate 1 GM in Dextrose 5% in Water 100 ML IV ONE (21:47)
[2024-12-12 21:49] VITALS: BP 130/85; PULSE 82
[2024-12-12] MEDS: Potassium Chloride 40 MEQ in Premix Bag 1 BAG IV ONE (22:45)
[2024-12-12] MEDS: Sodium Chloride 0.9% 100 ML ONE (22:47)
== END 2024-12-12 22:00 | disposition critical access hospital (66) ==
LOC: KA.ED 19:47
DX: I11.0 Hypertensive heart disease with heart failure (principal); I50.9 Heart failure, unspecified; E87.6 Hypokalemia; E83.42 Hypomagnesemia; E83.51 Hypocalcemia; E78.00 Pure hypercholesterolemia, unspecified; E11.9 Type 2 diabetes mellitus without complications; Z90.49 Acquired absence of other specified parts of digestive tract; Z88.6 Allergy status to analgesic agent; Z79.82 Long term (current) use of aspirin; Z79.890 Hormone replacement therapy; Z79.899 Other long term (current) drug therapy
CPT/HCPCS: 36415; 71045; 80053; 83735; 83880; 84484; 85025; 93010; 99284; 99285; J0612; J3475; J3480